=== PATIENT | male | born 1960 ===

== ENCOUNTER 2019-04-11 01:23 | Outpatient (CLI) | payer SELFPAY ==
[2019-04-11 08:29] LABS: HEMOGLOBIN A1C 5.6 % (4.5-6.2)
[2019-04-11 08:46] LABS: CHOL/HDL RATIO 5.67 (0.00-4.99)
== END 2019-04-11 23:59 | disposition home or self-care (01) ==
LOC: HW HEART 01:23
DX: Z13.6 Encounter for screening for cardiovascular disorders (principal)
CPT/HCPCS: 36415